=== PATIENT | female | born 1955 | race Caucasian/White ===

== ENCOUNTER 2019-01-01 06:34 | Inpatient (IN) ==
[2019-01-01] MEDS ORDERED: Ropivacaine/PF 0.5% 30 ML VIAL ONE (07:39)
[2019-01-01] MEDS ORDERED: Gabapentin 300 MG CAPSULE PO ONE (08:40)
[2019-01-01] MEDS ORDERED: *HR* OxyCODONE ER (12 HR) 10 MG TABLET PO ONE (08:40)
[2019-01-01] MEDS ORDERED: Celecoxib 200 MG CAPSULE PO ONE (08:40)
[2019-01-01] MEDS ORDERED: Ondansetron 4 MG/2 ML VIAL IVP ONE (08:41)
[2019-01-01] MEDS ORDERED: *HR* HYDROmorphone (PF) 1 MG/ML SYRINGE IVP PRN (08:41)
[2019-01-01] MEDS ORDERED: Bupivacaine/PF 0.75% in Dex 2 ML AMPUL INFILT ONE (08:49)
[2019-01-01] MEDS ORDERED: *HR* Midazolam HCl 2 MG/2 ML VIAL ONE (08:52)
[2019-01-01] MEDS ORDERED: *HR* FentaNYL (PF) 100 MCG/2 ML VIAL ONE (08:52)
[2019-01-01] MEDS ORDERED: Esmolol 100 MG/10 ML VIAL IVP ONE (08:56)
[2019-01-01] MEDS ORDERED: CeFAZolin Syr 2,000MG/20 ML 2,000 MG/20 ML SYRINGE IVPB ONE (08:59)
[2019-01-01] MEDS ORDERED: Albuterol 2.5 MG/3 ML NEBULIZER IH PRN (08:59)
[2019-01-01] MEDS ORDERED: Ringers Solution, Lactated 1,000 ML IVC SCH ×2 (09:00→12:37)
[2019-01-01] MEDS ORDERED: Propofol 500 MG/50 ML INFUS..BTL ONE (09:31)
[2019-01-01] MEDS ORDERED: Ethanol\\Acetic Acid\\Na Ace\\Ben 1,000 ML IRRIG.SOLN IR ONE (09:51)
[2019-01-01] MEDS ORDERED: Tranexamic Acid 1,000 MG/10 ML VIAL ONE (10:22)
[2019-01-01] MEDS ORDERED: *HR* PHENYLEPHRINE 1,000 MCG/10 ML SYRINGE IVP ONE ×2 (10:26→11:09)
[2019-01-01] MEDS ORDERED: Dexamethasone 4 MG/ML VIAL ONE (10:26)
[2019-01-01] MEDS ORDERED: Ondansetron 4 MG/2 ML VIAL ONE (10:26)
[2019-01-01] MEDS ORDERED: EPHEDrine 50 MG/ML VIAL ONE (11:11)
[2019-01-01] MEDS ORDERED: Naloxone 0.4 MG/ML INJ IVP PRN (12:37)
[2019-01-01] MEDS ORDERED: Ondansetron 4 MG/2 ML VIAL IVP PRN (12:37)
[2019-01-01] MEDS ORDERED: MOM Conc 10 ML UD.LIQ PO PRN (12:37)
[2019-01-01] MEDS ORDERED: *HR* Promethazine 25 MG/ML VIAL IVP PRN (12:37)
[2019-01-01] MEDS ORDERED: Sennosides 8.6 MG TABLET PO PRN (12:37)
[2019-01-01] MEDS ORDERED: *HR* OxyCODONE Immed Rel 5 MG TABLET PO PRN (12:37)
[2019-01-01] MEDS ORDERED: Temazepam 15 MG CAPSULE PO PRN (12:37)
[2019-01-01 13:01] LABS: Hematocrit 37.1 % (35.3-44.9); Hemoglobin 12.4 g/dL (11.5-15.4)
[2019-01-01] MEDS: Multivit/Ca/Min/Fe/FA 1 TAB TABLET PO SCH (14:55)
[2019-01-01] MEDS: Aspirin Enteric Coated 81 MG Tablet PO SCH (14:55)
[2019-01-01] MEDS: Ascorbic Acid 500 MG TABLET PO SCH (17:11)
[2019-01-01] MEDS: HYDROcodone BIT/Homatropine 5 MG TABLET PO PRN (21:27)
[2019-01-02] MEDS: HYDROcodone BIT/Homatropine 5 MG TABLET PO PRN ×2 (05:02→09:52)
[2019-01-02 05:10] LABS: Basophils % 0.2 %; Eosinophils % 0.1 %; Hematocrit 37.8 % (35.3-44.9); Hemoglobin 12.4 g/dL (11.5-15.4); Immature Granulocytes % 0.6 % (0-4); Lymphocytes # 1.2 K/mcL (0.6-4.6); Lymphocytes % 12.4 %; Mean Corpuscular HGB Conc 32.8 g/dL (31.6-35.5); Mean Corpuscular Hemoglobin 32.6 pg (28.0-33.3); Mean Corpuscular Volume 99.5 fL (83.0-100.0); Mean Platelet Volume 8.8 fL (9.4-12.4); Monocytes # 0.7 K/mcL (0.0-1.3); Monocytes % 6.8 %; Neutrophils # 7.7 K/mcL (1.6-8.9); Platelet Count 226 K/mcL (140-400); Red Cell Distribution Width 12.2 % (11.5-14.5); Segmented Neutrophils % 79.9 %; White Blood Count 9.7 K/mcL (4.3-11.1)
[2019-01-02 05:32] LABS: BUN/Creatinine Ratio 30 (6-26); Blood Urea Nitrogen 16 mg/dL (8-23); Carbon Dioxide 23 mEq/L (23-29); Chloride 107 mEq/L (98-107); Glucose 135 mg/dL (70-105); Osmolality,Calculated 291 (280-300); Potassium 4.3 mEq/L (3.5-5.1); Sodium 139 mEq/L (136-145); eGFR For African Americans > 60 (> 60); eGFR For Non-African Americans > 60 (> 60)
[2019-01-02] MEDS ORDERED: *HR* Enoxaparin 30 MG/0.3 ML SYRINGE SQ SCH ×2 (06:00→06:51)
[2019-01-02] MEDS ORDERED: Albuterol 2.5 MG/3 ML NEBULIZER IH ONE (09:34)
[2019-01-02] MEDS: Ascorbic Acid 500 MG TABLET PO SCH (09:52)
[2019-01-02] MEDS: Aspirin Enteric Coated 81 MG Tablet PO SCH (09:52)
[2019-01-02] MEDS: Multivit/Ca/Min/Fe/FA 1 TAB TABLET PO SCH (09:52)
[2019-01-02 11:12] VITALS: BP 97/60
== END 2019-01-02 15:30 | disposition home or self-care (01) | DRG 470 ==
LOC: SAMDAY 06:34 → 3NENU 12:34
PROVIDERS: ADMIT Orthopaedic Surgery; ATTEND Orthopaedic Surgery